=== PATIENT | female | born 1940 | race Caucasian/White ===

== ENCOUNTER 2019-08-11 12:19 | Emergency (ER) | payer OTHER, MEDICAID ==
[~2019-08-11] VITALS: Ht 157.5 cm; Wt 56.7 kg
[2019-08-11 12:40] VITALS: BP_SYST 162
--- NOTE | 2019-08-11 14:15 | NUR ---
Patient to ER bed 5 to gown for evaluation. Side rails up. Report given to Cheri BRUNO.
--- NOTE | 2019-08-11 14:20 | NUR ---
Patient arrived in the ED accompanied by her son, c/o urinary retention. Patient's son stated that her kidneys are functioning at 18% only. Patient is alert and oriented x3, respirations even and unlabored, speaking in full sentences and ambulating with a steady gait. VS WNL. Son at bedside.
--- NOTE | 2019-08-11 14:35 | NUR ---
ER Dr. Armenta at bedside examining patient.
[2019-08-11 16:07] LABS: BASOPHILS % (AUTO) 0.8 % (0.0-2.0); EOSINOPHILS % (AUTO) 0.7 % (0.0-4.0); HEMATOCRIT 30.5 % (36-48); HEMOGLOBIN 10.1 g/dL (12.0-16.0); LYMPHOCYTES # (AUTO) 1.1 K/uL (1.0-5.5); LYMPHOCYTES % (AUTO) 17.3 % (20.5-51.5); MEAN CORPUSCULAR HEMOGLOBIN 29 pg (27-31); MEAN CORPUSCULAR HGB CONC 33 % (32-36); MEAN CORPUSCULAR VOLUME 89 fL (79.0-98.0); MONOCYTES # (AUTO) 0.4 K/uL (0.0-1.0); MONOCYTES % (AUTO) 6.8 % (1.7-9.3); NEUTROPHILS # (AUTO) 4.9 K/uL (1.8-7.7); NEUTROPHILS % (AUTO) 74.4 % (40.0-70.0); PLATELET COUNT (AUTO) 233 K/uL (130-430); RED BLOOD CELL COUNT(AUTO) 3.44 MIL/uL (4.2-6.2); RED CELL DISTRIBUTION WIDTH 13.9 % (9.0-15.0); WHITE BLOOD COUNT (AUTO) 6.6 K/uL (4.8-10.8)
[2019-08-11 16:21] LABS: ANION GAP 10 (5-15); CALCIUM 8.6 mg/dL (8.4-11.0); CHLORIDE 102 mmol/L (98-107); CREATININE 2.21 mg/dL (0.55-1.30); GLUCOSE 125 mg/dL (70-99); POTASSIUM 4.2 mmol/L (3.5-5.1); SODIUM SERUM 136 mmol/L (136-145); UREA NITROGEN, BLOOD 29 mg/dL (8-21)
[2019-08-11 16:33] LABS: ALANINE AMINOTRANSFERASE 17 U/L (12-78); ALBUMIN 3.7 g/dL (3.4-4.8); ASPARTATE AMINOTRANSFERASE 15 U/L (10-37); TOTAL BILIRUBIN 0.2 mg/dL (0.0-1.0)
--- NOTE | 2019-08-11 16:48 | NUR ---
Patient ambulated to the bathroom with a steady gait.
--- NOTE | 2019-08-11 16:50 | NUR ---
ER Dr. Armenta at bedside giving discharge instructions to the patient.
--- NOTE | 2019-08-11 17:05 | NUR ---
Discontinued IV as ordered by Dr. Armenta. Catheter intact. Patient tolerated the procedure well.
[2019-08-11 17:08] VITALS: BP_SYST 162
--- NOTE | 2019-08-11 17:10 | NUR ---
Patient given written and verbal discharge instructions and verbalizes understanding. ER MD discussed with patient the results and treatment provided. Patient in stable condition. ID arm band removed. IV catheter removed intact and dressing applied, no active bleeding. Rx of Macrobid given. Patient educated on pain management and to follow up with PMD. Pain Scale 0/10. Opportunity for questions provided and answered. Medication side effect fact sheet provided.
== END 2019-08-11 17:08 | disposition home or self-care (01) ==
LOC: SED 12:19
DX: N39.0 Urinary tract infection, site not specified (principal); E87.5 Hyperkalemia; I12.9 Hypertensive chronic kidney disease with stage 1 through stage 4 chronic kidney disease, or unspecified chronic kidney disease; N18.4 Chronic kidney disease, stage 4 (severe)
CPT/HCPCS: 36415; 71045; 80053; 81002; 82550-TC; 83880; 84484; 85025; 93005; 99284